=== PATIENT | male | born 2000 | race Caucasian/White ===

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

== ENCOUNTER 2024-07-26 20:50 | Emergency (ER) | payer OTHER ==
[2024-07-26 20:57] VITALS: BP 122/92; PULSE 120; RESP 18; TEMP 98; BMI 26.4
[2024-07-26] MEDS ORDERED: IBUPROFEN 600 MG TABLET (FP) PO ONE (21:39)
[2024-07-26] MEDS: IBUPROFEN 600 MG TABLET (FP) PO ONE (21:42)
== END 2024-07-26 21:47 | disposition home or self-care (01) ==
LOC: JERFT 20:50
DX: M54.9 Dorsalgia, unspecified (principal); M25.562 Pain in left knee; V43.52XA Car driver injured in collision with other type car in traffic accident, initial encounter; Y92.410 Unspecified street and highway as the place of occurrence of the external cause
CPT/HCPCS: 99283-25